=== PATIENT | female | born 1955 | race Caucasian/White ===

== ENCOUNTER 2016-09-29 10:43 | Day surgery (SDC) | payer BC ==
[~2016-09-29] VITALS: Ht 170.2 cm; Wt 66.7 kg
[~2016-09-29 10:43] MED LIST: AMLODIPINE5 MG PO; B121000 MCG SL; BIOTIN MAXI10000 MCG PO; CALCIUM600 M1 PO; COQ10100 MG PO; CRESTOR5 MG OR; CRESTOR5 MG PO; FISH OIL1000 MG PO; FLAX SEED1000 MG PO; LYRICA50 MG OR; LYRICA50 MG PO; METAXALONE800 M1 PO; MULTIVITAMIN PO; NEXIUM40 M1 PO; NORVASC2.5 M1 OR; OREGANO PO; PAROXETINE10 MG OR; PAROXETINE20 MG PO; PAROXETINE40 MG PO; PROBIOTI1 OR; PROTONIX40 M2 PO; TRANSDERM-SC1.5 MG TD; VITAMIN D1000 UNI1 PO; [UNRECOGNIZED DRUG - OTHER] PO; [UNRECOGNIZED DRUG - OTHER] PO
[2016-09-29] MEDS ORDERED: LORCET HD 10-321 TAB PO (11:06)
[2016-09-29 15:39] VITALS: BP 127/57
[2016-09-29] MEDS ORDERED: PERCOCET1 TA4 PO (15:53)
== END 2016-09-29 16:15 | disposition home or self-care (01) | DRG 502 ==
LOC: ORM 10:43
PROVIDERS: ATTEND Orthopaedic Surgery
PROC: 0LQ24ZZ Repair Left Shoulder Tendon, Percutaneous Endoscopic Approach (ICD-10-PCS; principal; 2016-09-29)
PROC: 0LS44ZZ Reposition Left Upper Arm Tendon, Percutaneous Endoscopic Approach (ICD-10-PCS; 2016-09-29)
PROC: 0RNK4ZZ Release Left Shoulder Joint, Percutaneous Endoscopic Approach (ICD-10-PCS; 2016-09-29)
PROC: 0RBK4ZZ Excision of Left Shoulder Joint, Percutaneous Endoscopic Approach (ICD-10-PCS; 2016-09-29)
DX: M75.112 Incomplete rotator cuff tear or rupture of left shoulder, not specified as traumatic (principal); I10 Essential (primary) hypertension; Z01.818 Encounter for other preprocedural examination; Z01.810 Encounter for preprocedural cardiovascular examination; E78.00 Pure hypercholesterolemia, unspecified; Z97.2 Presence of dental prosthetic device (complete) (partial)
CPT/HCPCS: J2710

== ENCOUNTER 2016-12-15 03:30 | Emergency (ER) | payer BC ==
[~2016-12-15] VITALS: Ht 170.2 cm; Wt 60.8 kg
[~2016-12-15 03:30] MED LIST changes: +LORCET HD 10-321 TAB PO; +PERCOCET1 TA4 PO
[2016-12-15] MEDS ORDERED: AMLODIPINE5 MG PO (03:45)
[2016-12-15] MEDS ORDERED: BUSPAR5 MG PO (03:46)
[2016-12-15] MEDS ORDERED: OMEPRAZOLE10 MG PO (03:47)
[2016-12-15] MEDS ORDERED: LIPITOR20 MG PO (03:47)
[2016-12-15] MEDS ORDERED: PAROXETINE20 MG PO (03:48)
[2016-12-15 05:02] LABS: HEMOGLOBIN 11.7 g/dl (12.0-16.0); IMMATURE GRANULOCYTES 0.2 % (0.0-1.0); MEAN CELL VOLUME 93.8 fL CALC (80.0-100.0); MEAN CORPUSCULAR HGB 31.4 pG CALC (26.0-32.0); MEAN CORPUSCULAR HGB CONC 33.4 g/L CALC (32.0-36.0); NEUT# 3.99 thou/uL (2.00-7.15); RED BLOOD COUNT 3.73 mill/uL (4.20-5.60); RED CELL DISTRI WIDTH 11.9 % (11.5-15.5)
[2016-12-15 05:03] LABS: URINE BLOOD DIPSTICK TRACE-LYSED (NEGATIVE); URINE COLOR YELLOW; URINE GLUCOSE - DIPSTICK NEGATIVE (NEGATIVE); URINE KETONE 40 mg/dL (NEGATIVE); URINE NITRITE - DIPSTICK NEGATIVE (Negative); URINE PROTEIN - DIPSTICK TRACE mg/dL (NEG-TRACE); URINE UROBILINOGEN - DIPSTICK 0.2 E.U./dL (0.2)
[2016-12-15 05:04] LABS: URINE BILIRUBIN - DIPSTICK SMALL (NEGATIVE); URINE CLARITY SLIGHT CLOUDY; URINE LEUK ESTERASE SMALL (NEGATIVE)
[2016-12-15 05:09] LABS: URINE BACTERIA FEW hpf; URINE MUCUS MANY hpf (NONE-FEW); URINE RBC 0-2 RBC/hpf (0-5); URINE SQUAMOUS EPITHELIAL CELL FEW EPI/hpf (0-FEW)
[2016-12-15 05:10] LABS: URINE HYALINE CAST FEW lpf (NONE-RARE)
[2016-12-15 05:14] LABS: ALKALINE PHOSPHATASE 73 u/l (38-126); ANION GAP 17 (6-22 (CALC)); BUN 13 mg/dL (7-17); BUN/CREATININE RATIO 15 (12-20 (CALC)); CARBON DIOXIDE 26 mmol/l (22-30); CHLORIDE 103 mmol/l (95-108); CREATININE 0.8 mg/dL (0.5-1.0); GFR > 60 ML/MIN (>=60 (CALC)); GFR FOR AFR.AMER. > 60 ML/MIN (>=60 (CALC)); GLUCOSE 106 mg/dL (65-105); POTASSIUM 3.6 mmol/l (3.5-5.1); SGOT/AST 33 u/l (14-36); SGPT/ALT 27 u/l (9-52); SODIUM 142 mmol/l (137-146); TOTAL PROTEIN 8.2 g/dL (6.3-8.2)
[2016-12-15 05:27] LABS: MYOGLOBIN 78 ng/mL (0 - 62)
[2016-12-15 07:05] VITALS: BP 151/74
== END 2016-12-15 07:05 | disposition home or self-care (01) | DRG 305 ==
LOC: ED 03:30
DX: I10 Essential (primary) hypertension (principal); F32.9 Major depressive disorder, single episode, unspecified; F41.9 Anxiety disorder, unspecified; E78.00 Pure hypercholesterolemia, unspecified

== ENCOUNTER 2017-11-30 08:56 | Day surgery (SDC) | payer BC ==
[~2017-11-30 08:56] MED LIST changes: +AMITRIPTYLIN10 MG PO; +BUSPAR5 MG PO; +LIPITOR20 MG PO; +MIRALAX3350 NF PO; +OMEPRAZOLE10 MG PO; +PAROXETINE30 MG PO; +STOOL SOFTENER100 MG PO
[2017-11-30 12:34] VITALS: BP 172/77
== END 2017-11-30 12:53 | disposition home or self-care (01) | DRG 392 ==
LOC: ENDO 08:56 → ORM 16:00 → ENDO 16:00
PROVIDERS: ATTEND Internal Medicine Gastroenterology
PROC: 0DJD8ZZ Inspection of Lower Intestinal Tract, Via Natural or Artificial Opening Endoscopic (ICD-10-PCS; principal; 2017-11-30)
PROC: 0DB48ZX Excision of Esophagogastric Junction, Via Natural or Artificial Opening Endoscopic, Diagnostic (ICD-10-PCS; 2017-11-30)
PROC: 0DB78ZX Excision of Stomach, Pylorus, Via Natural or Artificial Opening Endoscopic, Diagnostic (ICD-10-PCS; 2017-11-30)
DX: K59.00 Constipation, unspecified (principal); K64.4 Residual hemorrhoidal skin tags; K64.8 Other hemorrhoids; K63.5 Polyp of colon; K21.0 Gastro-esophageal reflux disease with esophagitis; K29.70 Gastritis, unspecified, without bleeding; R11.2 Nausea with vomiting, unspecified; J38.2 Nodules of vocal cords; I10 Essential (primary) hypertension; F32.9 Major depressive disorder, single episode, unspecified; Z79.899 Other long term (current) drug therapy; Z86.010 Personal history of colon polyps

== ENCOUNTER 2019-05-26 09:56 | Observation (INO) | payer BC ==
[~2019-05-26] VITALS: Ht 165.1 cm; Wt 68.2 kg
--- NOTE | 2019-05-26 09:58 | NUR ---
PT AMB TO ROOM FOR BEDSIDE TRIAGE
--- NOTE | 2019-05-26 10:18 | NUR ---
PT STATES LIGHT HEADED DIZZY AND FELT LIKE PASSING OUT AT [facility] ALONG WITH DIAPHORESIS, PASSED AT THIS TIME BUT HAPPENED ABOUT 6 WEEKS AGO IRON WAS DIAGNOSED LOW AT THAT TIME
--- NOTE | 2019-05-26 11:02 | NUR ---
IV ACCESS OBTAINED, NO OTHER COMPLAINTS OFFERED, SPOUSE AT BEDSIDE, CALL RAYMOND MILLER
[2019-05-26 11:19] LABS: HEMATOCRIT 30.5 % (37.0-47.0); HEMOGLOBIN 10.2 g/dl (12.0-16.0); IMMATURE GRANULOCYTES 0.8 % (0.0-5.0); MEAN CELL VOLUME 94.1 fL CALC (80.0-100.0); MEAN CORPUSCULAR HGB 31.5 pG CALC (26.0-32.0); MEAN CORPUSCULAR HGB CONC 33.4 g/L CALC (32.0-36.0); NEUT# 13.08 thou/uL (2.00-7.15); RED BLOOD COUNT 3.24 mill/uL (4.20-5.60); RED CELL DISTRI WIDTH 11.9 % (11.5-15.5)
[2019-05-26 11:46] LABS: ALBUMIN 4.6 g/dL (3.2-5.0); ALKALINE PHOSPHATASE 66 u/l (38-126); BUN 19 mg/dL (8-23); BUN/CREATININE RATIO 13 (12-20 (CALC)); CARBON DIOXIDE 27 mmol/l (22-30); CHLORIDE 101 mmol/l (95-108); CREATININE 1.4 mg/dL (0.5-1.0); GFR 38 ML/MIN (>=60 (CALC)); GFR FOR AFR.AMER. 46 ML/MIN (>=60 (CALC)); SGOT/AST 19 u/l (9-36); SODIUM 138 mmol/l (137-146); TOTAL PROTEIN 7.7 g/dL (6.3-8.2)
[2019-05-26 11:53] LABS: ANION GAP 15 (6-22 (CALC)); BILIRUBIN, TOTAL 0.4 mg/dL (0.0-1.4); POTASSIUM 4.5 mmol/l (3.5-5.1)
--- NOTE | 2019-05-26 12:10 | NUR ---
PT STATES SHE HAD SOME SHE THOUGHT VAGINAL BLEEDING EVEN THOUGH SHE HAS HAD A HYSTERECTOMY, NOTIFIED.
[2019-05-26] MEDS ORDERED: MECLIZINE25 MG PO (13:13)
[2019-05-26] MEDS ORDERED: RANITIDINE150 M1 PO (13:13)
[2019-05-26] MEDS ORDERED: LISINOP/HCTZ1 TA2 PO (13:14)
[2019-05-26] MEDS ORDERED: MELOXICAM15 MG PO (13:14)
[2019-05-26] MEDS ORDERED: FERROCITE PO (13:15)
--- NOTE | 2019-05-26 13:15 | NUR ---
PT RESTING VAGINAL EXAM NEGATIVE, CALL RAYMOND MILLER MD SPOKE WITH PATIENT REGARDING ADMISSION FOR OBSERVATION
[2019-05-26] MEDS ORDERED: ALLERGY RE50 MCG/ACT NAB (13:16)
--- NOTE | 2019-05-26 14:00 | NUR ---
PT RESTING NO NEW COMPLAINTS, AWARE OF PENDING ADMISSION, IV ACCESS INTACT,SPOUSE AT BEDSIDE,
--- NOTE | 2019-05-26 14:50 | NUR ---
REPORT CALLED TO SURY GRANT ON MED SURG
--- NOTE | 2019-05-26 15:04 | NUR ---
PT ARRIVED FROM ER VIA WC WITH FAMILY AND IV PRESENT
--- NOTE | 2019-05-26 15:04 | NUR ---
TO MED SURG VIA W/C ON TELE ON BELONGINGS SENT WT PT
[2019-05-26 15:07] VITALS: BP 114/61
--- NOTE | 2019-05-26 15:30 | NUR ---
ASSESSMENT IS COMPLTED: IV SITE IS FREE FROM REDNESS OR EDEMA. HR IS REG,PULSES ARE STRONG X4, ABD IS SOFT WITH ACTIVE BS. BREATH SOUNDS ARE CLEAR, BILATERALLY. TELE MONITOR IN PLACE. CONTINEU TO OSBERVE AND MONITOR.
--- NOTE | 2019-05-26 19:36 | NUR ---
SPOKE WITH PT RE:INCENTIVE SPIROMETER, ALSO COLLECTED URINE TO SEND FOR TESTING.
[2019-05-26 19:40] VITALS: BP 128/70
[2019-05-26 19:57] LABS: URINE BILIRUBIN - DIPSTICK NEGATIVE (NEGATIVE); URINE BLOOD DIPSTICK LARGE (NEGATIVE); URINE COLOR YELLOW; URINE GLUCOSE - DIPSTICK NEGATIVE (NEGATIVE); URINE KETONE NEGATIVE (NEGATIVE); URINE NITRITE - DIPSTICK NEGATIVE (Negative); URINE PH 7.5 (4.5-8.0); URINE PROTEIN - DIPSTICK NEGATIVE (NEG-TRACE); URINE UROBILINOGEN - DIPSTICK 0.2 E.U./dL (0.2)
[2019-05-26 20:00] LABS: URINE LEUK ESTERASE MODERATE (NEGATIVE)
[2019-05-26 20:05] VITALS: BP 139/63
--- NOTE | 2019-05-26 20:05 | NUR ---
PT. SITTING UP IN BED EATING. NO DISTRESS NOTED; DENIES PAIN. ASSESSMENT COMPLETED AND ORTHOSTATICS COMPLETED; SEE INTEVENTIONS. IV SITE PATENT AND ORDERED IVF INFUSING WELL. SCHED MEDS GIVEN. FRESH ICE CHIPS PROVIDED. INSTRUCTED TO CALL FOR ANY NEEDS AND VERBALIZES UNDERSTANDING. WILL CONTINUE TO MONITOR.
[2019-05-26 20:10] VITALS: BP 139/62
[2019-05-26 20:15] VITALS: BP 159/68
[2019-05-26 23:44] VITALS: BP 106/55
--- NOTE | 2019-05-26 23:44 | NUR ---
PT. RESTING IN BED WITH NO DISTRESS NOTED. DENIES NEEDS/PAIN. VSS. NEW BAG OF ORDERED IVF HUNG. ENCOURAGED TO CALL FOR ANY NEEDS. CALL LIGHT IS IN REACH.
[2019-05-27] VITALS (8 sets, daily range): BP systolic 117–153; BP diastolic 52–68
--- NOTE | 2019-05-27 02:02 | NUR ---
PT. RESTING IN BED WITH NO DISTRESS NOTED; DENIES NEEDS AND VOICES NO CONCERNS. INSTRUCTED TO CALL FOR ANY NEEDS. CALL LIGHT IS IN REACH.
--- NOTE | 2019-05-27 03:30 | NUR ---
VSS. ASSISTED PT. TO AND FROM BATHROOM, PT. WITH STEADY GAIT. DENIES PAIN. NEURO WNL. ICE CHIPS AND FRESH WATER PROVIDED. CALL LIGHT IS IN REACH.
[2019-05-27 04:55] LABS: HEMATOCRIT 27.9 % (37.0-47.0); HEMOGLOBIN 9.4 g/dl (12.0-16.0); IMMATURE GRANULOCYTES 0.3 % (0.0-5.0); MEAN CELL VOLUME 94.6 fL CALC (80.0-100.0); MEAN CORPUSCULAR HGB 31.9 pG CALC (26.0-32.0); MEAN CORPUSCULAR HGB CONC 33.7 g/L CALC (32.0-36.0); NEUT# 6.83 thou/uL (2.00-7.15); RED BLOOD COUNT 2.95 mill/uL (4.20-5.60); RED CELL DISTRI WIDTH 11.8 % (11.5-15.5)
[2019-05-27 05:09] LABS: ANION GAP 13 (6-22 (CALC)); BUN 15 mg/dL (8-23); BUN/CREATININE RATIO 14 (12-20 (CALC)); CARBON DIOXIDE 24 mmol/l (22-30); CHLORIDE 106 mmol/l (95-108); CREATININE 1.1 mg/dL (0.5-1.0); GFR 50 ML/MIN (>=60 (CALC)); GFR FOR AFR.AMER. > 60 ML/MIN (>=60 (CALC)); MAGNESIUM 1.9 mg/dL (1.6-2.3); POTASSIUM 4.2 mmol/l (3.5-5.1); SODIUM 139 mmol/l (137-146)
--- NOTE | 2019-05-27 05:30 | NUR ---
PT. RESTING IN BED WITH NO DISTRESS NOTED;RESP. EVEN AND UNLABORED. CALL LIGHT IS IN REACH. WILL CONTINUE TO MONITOR.
--- NOTE | 2019-05-27 08:05 | NUR ---
ASSESSMENT IS COMPLETED: IV SITE IS FREE FROM REDNESS OR EDEMA. HR IS REG,PULSES ARE STRONG X4, ABD IS SOFT WITH ACTIVE BS. BREATH SOUNDS ARE CLEAR, BILATERALLY.TELE MONITOR IN PLACE. CONTINUE TO OBSERVE AND MONITOR.
--- NOTE | 2019-05-27 11:53 | NUR ---
PT IS RELAXING IN BED WITH FAMILY IN THE ROOM. NO DISTRESS NOTED. IV SITE IS FREE FROM REDNESS OR EDEMA.
--- NOTE | 2019-05-27 16:00 | NUR ---
PT IS RELAXING IN BED FAMILY IN THE ROOM. INQUIRING IF PT IS GOING HOME. IV SITE IS FREE FROM REDNESS OR EDEMA
--- NOTE | 2019-05-27 18:00 | NUR ---
FAMILY AND PT INFORMED BY NAVA HAMILTON RE: CONCERNS OF THE CAROTID US. WILL BE DETERMINED TOMORROW WHA TIS GOING TO HAPPEN. PT IS OK WITH THE NEWS. CONTINUE TO OSBERVE AND MONITOR.
--- NOTE | 2019-05-27 21:14 | NUR ---
PT MEDICATED ORDERS PROVIDE AND W/SLEEP AIDE. PT DENIES PAIN/N/V AND NO S/O DISTRESS NOTED AT THIS TIME. CALL LIGHT IS W/IN REACH AND PT ENCOURAGED TO CALL NEEDS ARISE.
[2019-05-28] VITALS (7 sets, daily range): BP systolic 123–146; BP diastolic 52–62
--- NOTE | 2019-05-28 00:20 | NUR ---
ZORAN IS IN OBTAINING V/S. PT JUST RETURNED FROM CT, IVF RECONNECTED AT THIS TIME. CALL LIGHT W/IN REACH. DENIES ANY OTHER NEEDS.
--- NOTE | 2019-05-28 00:20 | NUR ---
PT ARRIVED BACK FROM CT, IVF RECONNECTED TO PT. NO S/O DISTRESS NOTED. CALL LIGHT LEFT W/IN REACH.
[2019-05-28 04:43] LABS: HEMATOCRIT 27.4 % (37.0-47.0); HEMOGLOBIN 9.1 g/dl (12.0-16.0); IMMATURE GRANULOCYTES 0.2 % (0.0-5.0); MEAN CELL VOLUME 94.8 fL CALC (80.0-100.0); MEAN CORPUSCULAR HGB 31.5 pG CALC (26.0-32.0); MEAN CORPUSCULAR HGB CONC 33.2 g/L CALC (32.0-36.0); NEUT# 4.58 thou/uL (2.00-7.15); RED BLOOD COUNT 2.89 mill/uL (4.20-5.60); RED CELL DISTRI WIDTH 11.9 % (11.5-15.5)
--- NOTE | 2019-05-28 05:00 | NUR ---
ORTHOSTATIC BP'S PERFORMED. PT TOLERATED WELL. ASSISTED PT TO RESTROOM AND BACK TO BED. PT APPEARS STABLE UPON AMBULATION. DENIES ANY OTHER NEEDS, LEFT IN BED W/LIGHTS OFF AND CALL LIGHT W/IN REACH
[2019-05-28 05:04] LABS: ANION GAP 14 (6-22 (CALC)); BUN 12 mg/dL (8-23); BUN/CREATININE RATIO 11 (12-20 (CALC)); CARBON DIOXIDE 24 mmol/l (22-30); CHLORIDE 107 mmol/l (95-108); GFR 56 ML/MIN (>=60 (CALC)); GFR FOR AFR.AMER. > 60 ML/MIN (>=60 (CALC)); MAGNESIUM 1.9 mg/dL (1.6-2.3); POTASSIUM 4.1 mmol/l (3.5-5.1); SODIUM 141 mmol/l (137-146)
--- NOTE | 2019-05-28 08:00 | NUR ---
PT SEEN AWAKE, ALERT, ORIENTED X 3. LUNGS CLEAR, RA. PT AMBULATORY IN ROOM. NO COMPLAINTS OF LIGHTHEADEDNESS, CHEST PALPITATIONS, NEURO DEFICITS.
[2019-05-28] MEDS ORDERED: ASPIRIN CHEWABL81 MG PO (11:12)
[2019-05-28] MEDS ORDERED: LIPITOR20 MG PO (11:14)
--- NOTE | 2019-05-28 14:00 | NUR ---
PT HAS BEEN DISCHARGED TO HOME. PT VERBALIZED UNDERSTANDING OF DC INSTRUCTIONS, TAKEN TO LOBBY BY VOLUNTEER.
== END 2019-05-28 13:50 | disposition home or self-care (01) | DRG 312 ==
LOC: ED 09:56 → ED-I 12:35 → ED 12:46 → MS2 12:47
PROVIDERS: Family Medicine; Nurse Practitioner Family; ADMIT Internal Medicine; ATTEND Internal Medicine
DX: R55 Syncope and collapse (principal); N17.9 Acute kidney failure, unspecified; E86.0 Dehydration; I10 Essential (primary) hypertension; E78.5 Hyperlipidemia, unspecified; F32.9 Major depressive disorder, single episode, unspecified; M19.90 Unspecified osteoarthritis, unspecified site; I65.21 Occlusion and stenosis of right carotid artery; K21.9 Gastro-esophageal reflux disease without esophagitis; F41.9 Anxiety disorder, unspecified
CPT/HCPCS: G0378; J1650